=== PATIENT | female | born 1990 ===

== ENCOUNTER → 2017-12-27 16:27 | Outpatient (CLI) | payer OTHER | END | disposition home or self-care (01) | LOC: LAB 16:27 | DX: Z33.1 Pregnant state, incidental (principal) ==

== ENCOUNTER 2019-04-18 07:53 | Outpatient (CLI) | payer OTHER | END 2019-04-18 08:06 | disposition home or self-care (01) | LOC: SONOGRAMA 07:53 | DX: R10.2 Pelvic and perineal pain (principal) ==